=== PATIENT | male | born 1945 | race Caucasian/White ===

== ENCOUNTER 2024-03-18 11:58 | Outpatient (OUT) | payer MEDICARE, SELFPAY ==
[2024-03-18 12:56] LABS: Basophils Percent Auto 0.2 % (0.2-2.0); Eosinophils Absolute Auto 0.1 10^3/uL (0.0-0.7); Eosinophils Percent Auto 1.1 % (0.9-7.0); Hematocrit 39.5 % (42.0-54.0); Hemoglobin 13.3 g/dL (14.0-18.0); Immature Granulocytes Abs Auto 0.03 10^3/uL (0.00-0.03); Immature Granulocytes Pct Auto 0.5 % (0.0-0.5); Lymphocytes Absolute Auto 1.5 10^3/uL (1.2-3.8); Lymphocytes Percent Auto 23.3 % (20.5-60.0); Mean Corpuscular HGB Conc 33.7 g/dL (29.9-35.2); Mean Corpuscular Hemoglobin 30.6 pg (25.9-34.0); Mean Corpuscular Volume 90.8 fL (80.0-94.0); Mean Platelet Volume 9.5 fL (9.5-13.5); Monocytes Absolute Auto 0.6 10^3/uL (0.3-0.8); Neutrophils Absolute Auto 4.1 10^3/uL (1.4-6.5); Neutrophils Percent Auto 65.9 % (43.0-75.0); Platelet Count 151 10^3/uL (150-450); Red Blood Count 4.35 10^6/uL (4.70-6.10); Red Cell Distribution Width 12.9 % (11.0-15.0); White Blood Count 6.2 10^3/uL (4.0-11.0)
[2024-03-18 13:11] LABS: Estimated Average Glucose 126 mg/dL
[2024-03-18 13:25] LABS: Alanine Aminotransferase 21 U/L (16-63); Albumin Globulin Ratio 1.2; Albumin Level 3.8 g/dL (3.4-5.0); Alkaline Phosphatase 62 U/L (46-116); Aspartate Amino Transferase 17 U/L (15-37); BUN Creatinine Ratio 21.2; Bilirubin Total 1.2 mg/dL (0.2-1.0); Calcium 9.1 mg/dL (8.5-10.1); Carbon Dioxide 28.2 mmol/L (21.0-32.0); Chloride 101 mmol/L (98-107); Chol HDL Ratio 3.1; Cholesterol 142 mg/dL (<=200); Estimated GFR (African America >60 (>=60); Estimated GFR (Non-African Ame >60 (>=60); Globulin 3.3 g/dL; Glucose 107 mg/dL (74-106); HDL Cholesterol 46 mg/dL (40-60); Potassium 4.2 mmol/L (3.5-5.1); Sodium 137 mmol/L (136-145); Thyroid Stimulating Hormone 2.036 uIU/mL (0.358-3.740); Total Protein 7.1 g/dL (6.4-8.2); Triglycerides 203 mg/dL (<=150); VLDL CHOLESTEROL 40.6 mg/dL
[2024-03-18 14:20] LABS: Prostate Specific Antigen Scrn 3.07 ng/mL (<=4.00)
[2024-03-19 12:10] LABS: Insulin 27.6 uIU/mL (2.6-24.9)
[2024-03-19 15:39] LABS: Occult Blood Positive
== END 2024-03-18 11:59 | disposition home or self-care (01) ==
LOC: LAB 12:03
PROVIDERS: PCP Family Medicine; Visit Provider Family Medicine
DX: I48.0 Paroxysmal atrial fibrillation (principal); R01.1 Cardiac murmur, unspecified; G47.33 Obstructive sleep apnea (adult) (pediatric); R60.9 Edema, unspecified; E78.5 Hyperlipidemia, unspecified; R73.09 Other abnormal glucose; Z12.5 Encounter for screening for malignant neoplasm of prostate; Z12.12 Encounter for screening for malignant neoplasm of rectum; I50.30 Unspecified diastolic (congestive) heart failure; I11.0 Hypertensive heart disease with heart failure
CPT/HCPCS: 36415; 80053; 80061; 83036; 83525; 83880; 84436; 84443; 84481; 85025; G0103; G0328

== ENCOUNTER 2025-04-16 11:07 | Outpatient (OUT) | payer MEDICARE, SELFPAY ==
--- OUTSIDE RECORDS SUMMARY | 2024-11-20 04:23 | XMS_ITS ---
Author Organization The [facility] in [place] Address [address] [place] [address] Care Team Providers Care Email Administrator Name Role Phone Gloria Wisam Primary Care Provider REASON FOR VISIT rf Eliquis Medications Medication SIG (Take, Route, Frequency, Duration) Notes Start Date End Date Status Eliquis 5 MG take 1 tablet by kim th twice a day for 55 Active Encounters Encounter Location Date Provider Diagnosis [facility] [address] [place] [address] 11/20/2024 Wisam Castro Plan Of Treatment Medication Medication Name Sig Start Date Stop Date Notes Eliquis 5 MG take 1 tablet by mouth twice a day for 55 Progress Notes * Henry KAY CDOB: 4 (79 yo M)Acc No.[id number]:11/20/2024 Patient: Christal DIAYOBANIHenry :1945 A ge:79 Y S ex:Male Address:[address] [place] [phone] * Refills Refill Eliquis Tablet, 5 MG, 180 Tablet, take 1 tablet by mouth twice a day, 55, Refills=3 * true * Date: Generated for Printi ng/Faxing/eTransmitting on: 0 04/16/2025 11:10 AM EDT
--- OUTSIDE RECORDS SUMMARY | 2025-04-06 07:47 | XMS_ITS ---
Author Organization [facility] in [place] Address [address] [place] [address] Care Team Providers Care Amusement Centre Manager Name Role Phone DaveoscarWisam Primary Care Provider REASON FOR VISIT rf sotolol and losartan Medications Medication SIG (Take, Route, Frequency, Duration) Notes Start Date End Date Status Losartan Potassium 100 MG take 1 tablet by mouth once daily for 90 days Active Sotalol HCl 80 MG take 1 tablet by kim th twice a day for 90 Active Encounters Encounter Location Date Provider Diagnosis [facility] [address] [place] [address] 04/06/2025 Wisam Gloria Plan Of Treatment Medication Medication Name Sig Start Date Stop Date Notes Losartan Potassium 100 MG take 1 tablet by mouth once daily for 90 days Sotalol HCl 80 MG take 1 tablet by kim th twice a day for 90 Progress Notes * Henry KAY CDOB: (79 yo M)Acc No.[id number]:04/06/2025 Patient: Christal GARCIAHenry :1945 A ge:79 Y S ex:Male Address:[address] [place] [phone] * Refills Refill Losartan Potassium Tablet, 100 MG, 90 Tablet, take 1 tablet by mouth once daily, 90 days, Refills=3 Refill Sotalol HCl Tablet, 80 MG, 180 Tablet, take 1 tablet by mouth twice a day, 90, Refills=3 * true * Date: Generated for Jocelyne cervantes/Danielle/Julia on: 0 04/16/2025 11:10 AM EDT
--- OUTSIDE RECORDS SUMMARY | 2025-04-14 09:00 | XMS_ITS ---
Author Organization The [facility] in [place] Address [address] [place] [address] Care Team Providers Care Low Voltage Electrician Name Role Phone Wisam Castro Primary Care Provider Allergies No Known Allergies REASON FOR VISIT yearly Medications Medication SIG (Take, Route, Frequency, Duration) Notes Start Date End Date Status Sotalol HCl 80 MG take 1 tablet by kim th twice a day for 90 Active Triamcinolone Acetonide 0.1 % 1 application Externally Two times a Week Active Silvadene 1 % 1 application Aircraft Load Controller ally bid 05/28/2024 Active Vitamin D3 125 MCG (5000 UT) as directed Orally Once a day Active Metoprolol Succinate ER 100 MG take 1 tablet by mouth twice a day Oral for 90 days Active Cholecalciferol 125 MCG (5000 UT) as directed Orally Active CPAP - use as directed Acti ve Eliquis 5 MG take 1 tablet by kim th twice a day for 55 Active Losartan Potassium 100 MG take 1 tablet by mouth once daily for 90 days Active Atorvastatin Calcium 10 MG 1 tablet Oral ly Once a day for 90 days Active amLODIPine Besylate 10 MG 1 tablet Orall y Once a day for 90 days Active Social History Tobacco Use: Social History Observation Description Date Details (start date - stop date) Never Smoker NA - NA Tobacco Use/Smoking Question Answer Notes Patient is a nonsmoker AUDIT-C (Standard) Question Answer Notes Did you have a drink contain ing alcohol in the past year? Yes How often did you have a dri nk containing alcohol in the past year? Never (0 point) How many drinks did you have on a typical day when you were drinking in the past year? 1 or 2 drinks (0 point) How often did you have six o r more drinks on one occasion in the past year? 2 to 4 times a month (2 points) Points 2 Interpretation Negative Problems Problem Type SNOMED Code ICD Code Onset Dates Problem Status W/U Status Risk Notes Problem Morbid (severe) obesity due to excess calories (E66.01) Active confirmed Vital Signs Weight 286 lbs 04/14/2025 Height 73 in 04/14/2025 Blood pressure systolic 142 mm Hg 04/14/20 25 Blood pressure diastolic 82 mm Hg 025 BMI 37.73 kg/m2 04/14/2025 Encounters Encounter Location Date Provider Diagnosis [facility] [address] [place] [address] 04/14/2025 Wisam Hoy Morbid (severe) obes ity due to excess calories E66.01 ; Paroxysmal atrial fibrillation I48.0 ; Diabetes mellitus E11.9 and Paroxysmal ventricular tachycardia I47.29 Assessments Encounter Date Diagnosis (ICD Code) Assessment Notes Treatment Notes Treatment Clinical Notes Section Notes 04/14/2025 Morbid (severe) obesity due to excess calories (ICD-10 - E66.01) 04/14/2025 Paroxysmal atrial fibrillation (ICD-10 - I48.0) toleraed sotalol 04/14/2025 Diabetes mellitus (ICD-10 - E11.9) dfsicu ssed diet 04/14/2025 Paroxysmal ventricular tachycardia (ICD-10 - I47.29) Plan Of Treatment Treatment Notes Assessment Notes Paroxysmal atrial fibrillation toleraed sotalol Diabetes mellitus dfsicu ssed diet Pending Test Test Name Order Date HEMOGLOBIN A1C (GLYCO) 04/14/2025 LIPID PANEL (CHOL/TRIG/HDL/LDL) 04/14/20 25 STOOL OCCULT BLOOD 04/14/2025 THYROID PANEL (T4/TSH/FREE T3) PSA, SCREENING 04/14/2025 CMP (COMP MET ORELLANA) w/eGFR CKD-EPI 2024 CBC WITH DIFF 04/14/2025 Progress Notes * Henry DURAN CDOB: 4 (79 yo M)Acc No.[id number]:04/14/2025 Progress Note Patient: Christal GARCIA Henry Thacker Provider: Chase Castro ([facility])MD :1945 A ge:79 Y S ex:Male Date:04/14/2025 Address:[address] [place], [phone] Check In:12:56 PM ESTCheck O ut:01:30 PM EST Subjective: * Chief Complaints: * Y early * HPI: G eneral: Yearly Check up feels like is slowing down a bit for age wel controll Hx a-fib stble off meds needs lid lab surgery - ok to hld eliquis 3 days CHol - on meds. * ROS: E ENT: hearing changes d enies. v isual changes d enies.?non-healing mouth sores d enies. s wollen glands or neck lumps d enies. h oarseness d enies. s ore throat d enies. d ifficulty swallowing d enies. n ose bleeds d enies. n brad congestion d enies. e ar ache d enies. e ar discharge?denies. r inging in ears d enies. l ight sensitivity d enies. e ye pain d enies. b lurring d enies. e ye irritation d enies. d ouble vision d enies.?vision loss d enies. G eneral/Constitutional: Sweats: D enies. F atigue d enies. S leep problems d enies. A norexia d enies. M alaise d enies. W eight loss d enies.?Fatigue or Weakness d enies. F ever or Chills d enies. C ardiovascular: Shortness of Breath w/lying flat d enies. L ightheadedness/dizziness d enies. C hest tightness/ heavy pressure d enies. S welling of legs, ankles, or feet d enies. W aking up with shortness of breath d enies. C hest pain denies. P alpitations d enies. W eight gain d enies. R espiratory: Chronic or frequent cough d enies. C oughing up blood?denies. D ifficulty breathing d enies. P roductive cough d enies. S noring?denies. S hortness of breath that awakens from sleep (PND) d enies. C hest pain d enies. S putum production d enies. W heezing d enies. M usculoskeletal: Joint pain d enies. J oint Fluid d enies. B ack pain d enies. K nee pain d enies. N hipolito pain d enies. J oint Stiffness d enies. M uscle cramps d enies. W eakness of muscles d enies. A rthritis d enies. M uscle aches d enies. P ain in shoulder(s) d enies. S wollen joints d enies. * Active Problem List I34.0 Mild mitral regurgit ation Modified On:03/26/2023 Status:confirmed L30.9 Eczema Modified On:03/26/2023 Status:confirmed E55.9 Vitamin D deficiency Modified On:03/26/2023 Status:confirmed I07.1 Mild tricuspid regur gitation Modified On:03/26/2023 Status:confirmed K64.9 Hemorrhoids Modified On:03/26/2023 Status:confirmed H54.7 Vision loss Modified On:03/26/2023 Status:confirmed R01.1 Murmur, heart Modified On:03/26/2023 Status:confirmed R20.2 Paresthesia of lower extremity Modified On:03/26/2023 Status:confirmed D17.30 Lipoma of skin Modified On:03/26/2023 Status:confirmed 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 Modified On:03/26/2023 Status:confirmed M77.8 Tendinitis of right wrist Modified On:03/26/2023 Status:confirmed E11.9 Diabetes mellitus Modified On:03/26/2023 Status:confirmed I47.29 Paroxysmal ventricul ar tachycardia Modified On:03/26/2023 Status:confirmed E66.3 Overweight Modified On:03/26/2023 Status:confirmed I48.0 Paroxysmal atrial fi brillation Modified On:03/26/2023 Status:confirmed K43.9 Ventral hernia witho ut obstruction or gangrene Modified On:03/26/2023 Status:confirmed R00.2 Palpitations Modified On:03/26/2023 Status:confirmed I10 Hypertension Modified On:03/26/2023 Status:confirmed M19.90 Osteoarthritis Modified On:03/26/2023 Status:confirmed I51.7 Left ventricular hyp ertrophy Modified On:03/26/2023 Status:confirmed G47.33 Obstructive sleep ap benjy (adult) (pediatric) Modified On:01/26/2023 Status:confirmed R42 Vertigo Modified On:03/26/2023 Status:confirmed R60.9 Edema Modified On:03/18/2024 Status:confirmed 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 M other: . * Social History: T obacco Use: T obacco Use/Smoking P atient is a n onsmoker D rug/Alcohol: A FEDE-C (Standard) D id you have a drink containing alcohol in the past year? Y es H ow often did you have a drink containing alcohol in the past year? N ever (0 point) H ow many drinks did you have on a typical day when you were drinking in the past year? 1 or 2 drinks (0 point) H ow often did you have six or more drinks on one occasion in the past year? 2 to 4 times a month (2 points) P oints 2 I nterpretation N egative * Medications: T akingamLODIPine Besylate 10 MG Tablet 1 tablet Orally Once a day Atorvastatin Calcium 10 MG Tablet 1 tablet Orally Once a day Cholecalciferol 125 MCG (5000 UT) Tablet as directed Orally CPAP - use as directed Eliquis(Apixaban) 5 MG Tablet take 1 tablet by mouth twice a day Losartan Potassium 100 MG Tablet take 1 tablet by mouth once daily Metoprolol Succinate ER 100 MG Tablet Extended Release 24 Hour take 1 tablet by mouth twice a day Oral Silvadene(Silver sulfADIAZINE) 1 % Cream 1 application Externally bid Sotalol HCl 80 MG Tablet take 1 tablet by mouth twice a day Triamcinolone Acetonide 0.1 % Cream 1 application Externally Two times a Week Vitamin D3 125 MCG (5000 UT) Capsule as directed Orally Once a day Taking amLODIPine Besylate 10 MG Tablet 1 tablet Orally Once a day Taking Atorvastatin Calcium 10 MG Tablet 1 tablet Orally Once a day Taking Cholecalciferol 125 MCG (5000 UT) Tablet as directed Orally Taking CPAP - use as directed Taking Eliquis(Apixaban) 5 MG Tablet take 1 tablet by mouth twice a day Taking Losartan Potassium 100 MG Tablet take 1 tablet by mouth once daily Taking Metoprolol Succinate ER 100 MG Tablet Extended Release 24 Hour take 1 tablet by mouth twice a day Oral Taking Silvadene(Silver sulfADIAZINE) 1 % Cream 1 application Externally bid Taking Sotalol HCl 80 MG Tablet take 1 tablet by mouth twice a day Taking Triamcinolone Acetonide 0.1 % Cream 1 application Externally Two times a Week Taking Vitamin D3 125 MCG (5000 UT) Capsule as directed Orally Once a day DiscontinuedAmoxicillin 500 MG Capsule 4 capsule Orally 1 hour prior to dental procedure Medication List reviewed and reconciled with the patientDiscontinued Amoxicillin 500 MG Capsule 4 capsule Orally 1 hour prior to dental procedure Medication List reviewed and reconciled with the patient * Allergies: N .K.D.A.no[Allergies Verified] Objective: * Vitals: W t:286lbs, Ht: 73 in, BP:142/82mm Hg, BMI:37.73Index, Ht-cm: 185.42 cm, Wt-k.73 kg. * Examination: P hysical Exam: GENERAL: w ell developed, well nourished, in no acute distress. HEAD: n ormocephalic/atraumatic. EYES: p upils equal, round and reactive to light, conjunctivae and sclerae normal. EARS: n o deformity or lesion of external ear, canals and TM appear normal bilaterally, TM's intact, not inflamed with normal light reflex, hearing grossly normal to conversational speech. NOSE: n o deformity, discharge, inflammation, or lesions.? MOUTH: m ucous membranes moist, normal oropharynx and posterior pharynx without lesions or exudates, tongue normal, dentition normal. NECK: n hipolito supple, no masses or palpable cervical nodes, trachea midline, thyroid without nodules, masses, tenderness, or enlargement. CHEST: n o chest wall deformity, no chest wall tenderness.? LUNGS: n ormal respiratory effort and clear to auscultation, no wheezes, rales, or rhonchi, good air exchange. CARDIO: r egular rate and rhythm, normal S1 and S2, nor murmur, rub, or gallop. PULSES: n ormal capillary refill. ABDOMEN: s oft, non-distended, non-tender, no masses. MUSCULOSKELETAL: n o deformity or scoliosis noted, normal range of motion, joints normal, no erythema, edema, effusion, or ecchymosis. EXTREMITY: n o clubbing, cyanosis, edema, or deformity with normal ROM in both upper and lower bilateral extremities. NEUROLOGIC: g rossly normal. SKIN: n o rashes, ulcerations, or suspicious lesions. LYMPH NODES: n o cervical adenopathy, nodes normal. MENTAL STATUS: a lert and oriented x3, normal mood and affect. Assessment: * Assessment: 1. M orbid (severe) obesity due to excess calories - E66.01 (Primary) 2 . P aroxysmal atrial fibrillation - I48.0 3 . D iabetes mellitus - E11.9 4 . P aroxysmal ventricular tachycardia - I47.29 Plan: * Treatment: 2. P aroxysmal atrial fibrillation L AB: HEMOGLOBIN A1C (GLYCO) L AB: LIPID PANEL (CHOL/TRIG/HDL/LDL) L AB: STOOL OCCULT BLOOD L AB: THYROID PANEL (T4/TSH/FREE T3) L AB: PSA, SCREENING L AB: CMP (COMP MET ORELLANA) w/eGFR CKD-EPI L AB: CBC WITH DIFF Notes: toleraed sotalol 3. D iabetes mellitus L AB: HEMOGLOBIN A1C (GLYCO) L AB: LIPID PANEL (CHOL/TRIG/HDL/LDL) L AB: STOOL OCCULT BLOOD L AB: THYROID PANEL (T4/TSH/FREE T3) L AB: PSA, SCREENING L AB: CMP (COMP MET ORELLANA) w/eGFR CKD-EPI L AB: CBC WITH DIFF Notes: dfsicu ssed diet 4. P aroxysmal ventricular tachycardia L AB: HEMOGLOBIN A1C (GLYCO) L AB: LIPID PANEL (CHOL/TRIG/HDL/LDL) L AB: STOOL OCCULT BLOOD L AB: THYROID PANEL (T4/TSH/FREE T3) L AB: PSA, SCREENING L AB: CMP (COMP MET ORELLANA) w/eGFR CKD-EPI L AB: CBC WITH DIFF * Procedure Codes: * Preventive Medicine: Screenings/Counseling: B NE ACTION PLAN Above Normal BMI Follow-up D ietary management education, guidance, and counseling * * Sign off status: Completed Visit Status: C HK (Check Out) true * Provider: Chase Castro ([facility])MD Date: 0 04/14/2025 Generated for Printi ng/Faxing/eTransmitting on: 0 04/16/2025 11:11 AM EDT History and Physical Notes * HPI (History of Present Illness) Category Sub-Category Detail Notes Category Not es General Yearly Check up feels like is slowing down a bit for age wel controll Hx a-fib stble off meds needs lid lab surgery - ok to hld eliquis 3 days CHol - on meds Examination Category Sub-Category Detail Notes Category Not es Physical Exam GENERAL: well developed, well nourished, in no acute distress HEAD: normocephalic/atraum atic EYES: pupils equal, round and reactive to light, conjunctivae and sclerae normal EARS: no deformity or lesi on of external ear, canals and TM appear normal bilaterally, TM's intact, not inflamed with normal light reflex, hearing grossly normal to conversational speech NOSE: no deformity, discha rge, inflammation, or lesions MOUTH: mucous membranes maría st, normal oropharynx and posterior pharynx without lesions or exudates, tongue normal, dentition normal NECK: neck supple, no mass es or palpable cervical nodes, trachea midline, thyroid without nodules, masses, tenderness, or enlargement CHEST: no chest wall deform ity, no chest wall tenderness LUNGS: normal respiratory e ffort and clear to auscultation, no wheezes, rales, or rhonchi, good air exchange CARDIO: regular rate and rhy thm, normal S1 and S2, nor murmur, rub, or gallop PULSES: normal capillary ref ill ABDOMEN: soft, non-distended, non-tender, no masses RECTAL: MUSCULOSKELETAL: no deformity or scol iosis noted, normal range of motion, joints normal, no erythema, edema, effusion, or ecchymosis EXTREMITY: no clubbing, cyanosi s, edema, or deformity with normal ROM in both upper and lower bilateral extremities NEUROLOGIC: grossly normal SKIN: no rashes, ulceratio ns, or suspicious lesions LYMPH NODES: no cervical adenopat hy, nodes normal MENTAL STATUS: alert and oriented x 3, normal mood and affect
--- OUTSIDE RECORDS SUMMARY | 2025-04-16 11:11 | XMS_ITS | Encounter Summary ---
Author Organization [facility] Address [address] [place] [address] Care Team Providers Care Communications Writer Name Role Phone Berlin Castro MD Primary Care Provider + Rey Perry MD Unavailable Dameon Arizmendi MD Unavailable [phone] Toy Crouch MD Unavailable [phone] Source Comments In the event this information is protected by the Federal Confidentiality of Alcohol and Drug AbusePatient Records regulations: The Federal rules restrict any use of the information to criminally investigate or prosecute any alcohol or drug abuse patient.[facility] Encounter Details Date Type Department Care Team (Late st Contact Info) Description 03/31/2021 Get Medical Advice Cardiology [address] [place] [address] [place] [address] RE: Non-Urgent Medical Question Social History Tobacco Use Types Packs/Day Years Used Date Smoking Tobacco: Never Smokeless Tobacco: Never Alcohol Use Standard Drinks/Week Comments Yes 0 (1 standard drink = 0.6 oz pur e alcohol) 10 drinks per week PHQ-2 Answer Date Recorded PHQ2 Score 0 04/15/2019 Area Deprivation Index Answer Date Dat rded National Score (1-100), lower number is lower ri sk Not on file 10/19/2020 State Score (1-10), lower number is lower risk N ot on file 10/19/2020 Data from: https://www.neighborhoodatlas.medicine.[facility]/. Last address used for calculation Not on file 10/19/2020 Sex and Gender Information Value Date Recorded Sex Assigned at Male 04/18/2022 9:48 PM EDT Legal Sex Male 1:40 PM EST Gender Identity Male 04/18/2022 9:48 PM EDT Sexual Orientation Straight 04/18/2022 9: 48 PM EDT COVID-19 Exposure Response Date Recorded In the last month, have you been in contact with someone who was confirmed or suspected to have Coronavirus / COVID-19? No / Unsure 03/08/2021 8:36 AM EDT documented as of this encounter Functional Status * Are you deaf or do you have serious difficulty hearing? Answer Date of Assessment Author No 04/18/2019 3:08 PM EDT Cherise Avendano RN * Are you blind or do you have serious difficulty seeing, even when wearing glasses? Answer Date of Assessment Author No 04/18/2019 3:08 PM EDT Cherise Avendano RN * Do you have serious difficulty walking or climbing stairs? Answer Date of Assessment Author No 04/18/2019 3:08 PM EDT Cherise Avendano RN * Do you have difficulty dressing or bathing? Answer Date of Assessment Author No 04/18/2019 3:08 PM EDT Cherise Avendano RN * Because of a physical, mental, or emotional condition, do you have difficulty doing errands alone such as visiting a doctor's office or shopping? Answer Date of Assessment Author No 04/18/2019 3:08 PM EDT Cherise Avendano RN documented as of this encounter Mental Status * Because of a physical, mental, or emotional condition, do you have serious difficulty concentrating, remembering, or making decisions? Answer Entry Date Author No 04/18/2019 3:08 PM EDT Cherise Avendano RN documented in this encounter Plan of Treatment Upcoming Encounters Date Type Department Care Team (Late st Contact Info) Description 04/26/2025 12:30 PM EDT Office Visit Cardiology [address] [place] [phone] [place] [address] [place], [place] [id number] annual 04/26/2025 12:30 PM EDT Office Visit Cardiology [address] [place] [address] annual documented as of this encounter Visit Diagnoses Not on filedocumented in this encounter Care Teams Communications Writer Relationship Specialty Start Date End Date Berlin Castro MD PCP - General Family Medicine 11/24/15 Rey Perry MD [address] [place] [address] Referring Cardiology 03/10/19 Dameon Arizmendi MD [address] [place] [phone] Cardiology 03/24/19 Toy Crouch MD [address] [place] [phone] Primary Staff Physician Cardiology 04/26/20 documented as of this encounter
--- OUTSIDE RECORDS SUMMARY | 2025-04-16 11:11 | XMS_ITS | Patient Health Record ---
Author Organization [facility] in [place] Address [address] [place] [address] Care Team Providers Care Sugar Drier Name Role Phone Wisam Castro Primary Care Provider [phone] Allergies No Known Allergies Reason For Referral No Information Medications Medication SIG (Take, Route, Frequency, Duration) Notes Start Date End Date Status Sotalol HCl 80 MG take 1 tablet by kim th twice a day for 90 Active Triamcinolone Acetonide 0.1 % 1 application Externally Two times a Week Active Metoprolol Succinate ER 100 MG take 1 tablet by mouth twice a day Oral for 90 days Active Silvadene 1 % 1 application Grocery Store Manager ally bid 05/28/2024 Active Atorvastatin Calcium 10 MG 1 tablet Oral ly Once a day for 90 days Active Cholecalciferol 125 MCG (5000 UT) as directed Orally Active Vitamin D3 125 MCG (5000 UT) as directed Orally Once a day Active amLODIPine Besylate 10 MG 1 tablet Orall y Once a day for 90 days Active CPAP - use as directed Acti ve Eliquis 5 MG take 1 tablet by kim th twice a day for 55 Active Losartan Potassium 100 MG take 1 tablet by mouth once daily for 90 days Active Social History Tobacco Use: Social History Observation Description Date Details (start date - stop date) Never Smoker NA - NA Tobacco Use/Smoking Question Answer Notes Patient is a nonsmoker Alcohol Screen (Audit-C) Question Answer Notes Did you have a drink contain ing alcohol in the past year? Yes How often did you have 6 or more drinks on one occasion in the past year? Never (0 point) How many drinks did you have on a typical day when you were drinking in the past year? 1 or 2 drinks (0 point) How often did you have a dri nk containing alcohol in the past year? Monthly (2 points) Points 2 Interpretation Negative AUDIT-C (Standard) Question Answer Notes Did you [...] Problem Status W/U Status Risk Notes Problem Obstructive sleep apnea syndrome (disorder) (93235213) Obstructive sleep apnea (adult) (pediatric) (G47.33) Active confirmed Problem Morbid obesity (disorder) (603697955) Morbid (severe) obesity due to excess calories (E66.01) Active confirmed Problem Overweight (914005779) Overweight (E66.3) Active confirmed Problem Paroxysmal atrial fibrillation (172370783) Paroxysmal atrial fibrillation (I48.0) Active confirmed Problem Hernia of anterior abdominal wall (disorder) (452419865) Ventral hernia without obstruction or gangrene (K43.9) Active confirmed Problem Palpitations (99177789) Palpitations (R00.2) Active confirmed Problem Hypertension (17507513) Hypertension (I10) Active confirmed Problem Osteoarthritis (995454514) Osteoarthritis (M19.90) Active confirmed Problem Edema (24248973) Edema (R60.9) Active confirmed Problem Left ventricular hypertrophy (49114160) Left ventricular hypertrophy (I51.7) Active confirmed Problem Vertigo (867179015) Vertigo (R42) Active confirmed Problem Mitral valve disorder (33757567) Mild mitral regurgitation (I34.0) Active confirmed Problem Eczema (05613317) Eczema (L30.9) Active confirm ed Problem Vitamin D deficiency (98894361) Vitamin D deficiency (E55.9) Active confirmed Problem Tricuspid valve disorder (29654510) Mild tricuspid regurgitation (I07.1) Active confirmed Problem Hemorrhoids (06646098) Hemorrhoids (K64.9) Active confirmed Problem 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) Active confirmed Problem Heart murmur (finding) (42348384) Murmur, heart (R01.1) Active confirmed Problem Paresthesia of lower extremity (162898104) Paresthesia of lower extremity (R20.2) Active confirmed Problem Lipoma of skin (251868180) Lipoma of skin (D17.30) Active confirmed Problem Permanent cardiac pacemaker (066611392339794) Presence of permanent cardiac pacemaker (Z95.0) Active confirmed Problem Tendinitis of right wrist (3118126678153246 9) Tendinitis of right wrist (M77.8) Active confirmed Problem Degeneration of macula due to cyst, 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) Pseudohole of macula, 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) Active confirmed Problem Diabetes mellitus (78371278) Diabetes mellitus (E11.9) Active confirmed Problem Paroxysmal ventricular tachycardia (72267365) Paroxysmal ventricular tachycardia (I47.29) Active confirmed Vital Signs Blood pressure diastolic 82 mm Hg 04/14/2025 Height 73 in 04/14/2025 Blood pressure systolic 142 mm Hg 04/14/2025 Weight 286 lbs 04/14/2025 BMI 37.73 kg/m2 04/14/2025 Encounters Encounter Location Date Provider Diagnosis [facility] [address] [place] [address] 05/28/2024 Wisam [facility] [address] [place] [address] 06/01/2024 Wisam Castro [facility] [address] [place] [address] 09/10/2024 Wisam [facility] [address] [place] [address] 10/05/2024 Wisam Castro [facility] [address] [place] [address] 11/20/2024 Wisam oscar [facility] [address] [place] [address] 04/06/2025 Wisam oscar [facility] [address] [place] [address] 04/14/2025 Wisam Castro Morbid (severe) obes ity due to excess [...] tachycardia (ICD-10 - I47.29) Plan Of Treatment Pending Test Test Name Order Date CMP (COMPLETE METABOLIC PANEL) 4 HEMOGLOBIN A1C (GLYCO) 03/18/2024 HEMOGLOBIN A1C (GLYCO) 04/14/2025 INSULIN, TOTAL 03/18/2024 LIPID PANEL (CHOL/TRIG/HDL/LDL) 04/14/20 25 LIPID PANEL (CHOL/TRIG/HDL/LDL) 03/18/20 24 CBC WITH DIFF 03/18/2024 PSA, PROSTATE-SPECIFIC ANTIGEN 4 STOOL OCCULT BLOOD 03/18/2024 STOOL OCCULT BLOOD 04/14/2025 THYROID PANEL (T4/TSH/FREE T3) 5 THYROID PANEL (T4/TSH/FREE T3) 4 PSA, SCREENING 04/14/2025 CMP (COMP MET ORELLANA) w/eGFR CKD-EPI 2024 CBC WITH DIFF 04/14/2025 Insurance Providers Payer Name Payer Address Payer Phone Subscriber Number Group Number Insured Name Patient Relationship to Insured Coverage Start Date Coverage End Date [employer] ADV PLAN [address] [place] [phone] [id number] [id number] Henry Duran Self - patient is the insured 9 Medical (General) History Medical History History ICD Code Chronic eczema L30.9 Nonsustained paroxysmal ventricular tach ycardia I47.29 Cardiac pacemaker Z95.0 Low vitamin D level E55.9 Obstructive sleep apnea G47.33 Paroxysmal atrial fibrillation I48.0 Controlled type 2 diabetes mellitus E11. 9 Hernia, ventral K43.9 Benign essential hypertension I10 Cardiac murmur R01.1 Acquired ventricular hypertrophy I51.7 Acute mitral regurgitation I34.0 Mild tricuspid regurgitation I07.1 Surgical History Surgery Date(Month/Year) Back Surgery Pacemaker Gallbladder
--- OUTSIDE RECORDS SUMMARY | 2025-04-16 11:11 | XMS_ITS | Clinical Summary ---
Author Organization [facility] Address [address] [place] [address] Care Team Providers Care Stock Letterer Name Role Phone Berlin Castro MD Primary Care Provider [phone] Henry Torrez MD Unavailable [phone] Rey Perry MD Unavailable Allergies No known active allergies Medications aspirin 81 MG Chew Tab take 81 mg by mouth at bedtime. Active atorvastatin 10 MG Tab take 10 mg by mouth daily. Active apixaban 5 MG Tab take by mouth every 12 hours. Active omega-3 acid ethyl esters 1 G Cap take 1 g by mouth daily. Active losartan 100 MG Tab take 100 mg by mouth daily. Active sotalol 80 MG Tab take 1 tablet by mouth every 12 hours. 60 tablet 5 03/23/2016 Active Active Problems Problem Noted Date Diagnosed Date PAF (paroxysmal atrial fibrillation) 12/05/2018 Overview (12/05/2018): Added automatically from request for surgery [id number] Atrial fibrillation, persistent 03/22/2016 Assessment & Plan (03/22/2016 2:26 PM EDT): S/p successful DCCV 03/21/16 Admitted for sotalol load He is now SB 40's despite stopping Coreg He is asymptomatic with notable chronotropic HR response with ambulation Decrease Sotalol to 80 mg BID and monitor S/p LINQ implant today for continued surveilance Continue eliquis Encounter for monitoring sotalol therapy 05/12/2 016 Assessment & Plan (03/22/2016 2:19 PM EDT): He has 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 Torrez and [facility] LV dysfunction 03/22/2016 Assessment & Plan (03/22/2016 2:38 PM EDT): EF 45% Like Tachy/Afib related Clinically compensated Follow up TTE in 3 months after maintenance of SR Follow up with Dr. Perry Hypomagnesemia 03/22/2016 Assessment & Plan (03/22/2016 2:33 PM EDT): Mg+ 1.7 Replacement per protocol Bradycardia 03/22/2016 Assessment & Plan (03/22/2016 2:34 PM EDT): Asymptomatic Decrease sotalol Check TSH CAD (coronary artery disease) 03/21/2016 Assessment & Plan (03/22/2016 2:30 PM EDT): Non-obstructive Continue ASA, statin therapy HTN (hypertension) 03/21/2016 Assessment & Plan (03/22/2016 2:26 PM EDT): Controlled Continue Losartan with Sotalol LÓPEZ (obstructive sleep apnea) 03/21/2016 Assessment & Plan (03/22/2016 2:25 PM EDT): Continue home c-pap Family History Medical History Relation Name Comments Other - Specify Father muscular dys trophy Other - Specify Mother Alzheimer's Relation Name Status Comments Father Mother (Age 93) Social History Tobacco Use Types Packs/Day Years Used Date Smoking Tobacco: Never Smokeless Tobacco: Never Alcohol Use Standard Drinks/Week Comments Yes 0 (1 standard drink = 0.6 oz pur e alcohol) occassional Sex and Gender Information Value Date Recorded Sex Assigned at Not on file Legal Sex Male 8:30 AM EDT Gender Identity Male Sexual Orientation Not on file Last Filed Vital Signs Vital Sign Reading Time Taken Comments Blood Pressure 148/78 12/09/2018 3:15 PM EST Pulse 47 12/09/2018 3:15 PM EST Temperature 36.9 C (98.5 F) 03/23/2016 11:25 AM EDT Respiratory Rate 20 12/09/2018 3:15 PM EST Oxygen Saturation 81% 12/09/2018 3:15 PM EST Inhaled Oxygen Concentration - - Weight 127 kg (280 lb) 12/09/2018 12:03 PM EST Height 185.4 cm (6' 1 ) 12/09/2018 12:03 PM EST Body Mass Index 36.94 12/09/2018 12:03 PM EST Plan of Treatment Health Maintenance Due Date Last Done Comments TETANUS 1944 TDAP (ADULT) 1963 COLORECTAL CANCER SCREENING DISCUSSION 1989 ZOSTER (SHINGLES) VACCINE (1 of 2) 1994 PNEUMOCOCCAL VACCINE SERIES (2 of 2 - PCV) 09/19/2017 09/19/2016 RSV VACCINE (1 - 1-dose 75+ series) 2019 COVID-19 VACCINE (1 - 2023-2 5 season) 2024 INFLUENZA VACCINE (Season Ended) 2025 09/19/20 16 HEP B VACCINE Aged Out No longer elig ible based on patient's age to complete this topic Medical Devices Implanted Type Area Advanced Manager Device Identifier Shelf Expiration Date Model / Serial / Lot Icm Reveal Linq - [id number] Implanted:Qty : 1 on 03/22/2016 by Lucien Ward MD at [facility] Loop Recorder N/A: Chest Wall [employer] 12/25/2016 [id number] / [id number] / Advance Directives For more information, please contact: [phone] (7:30 AM - 6PM [facility], Saturday-Saturday) * Full Code (Latest Code Status on File) Date Activated Date Inactivated Comments 12/09/2018 2:21 PM * Full Code Date Activated Date Inactivated Comments 03/22/2016 7:30 AM 03/23/2016 2:45 PM * Full Code Date Activated Date Inactivated Comments 03/21/2016 3:01 PM 03/22/2016 7:30 AM Care Teams Stock Letterer Relationship Specialty Start Date End Date Berlin Castro MD PCP - General Family Medicine 03/15/16 Henry Torrez MD [address] [place] [address] PCP - Referring 1 Clinical Cardiac Electrophysiology 12/08/18 Rey Perry MD [address] [place] [address] Cardiovascular Disease 02/03/19
--- OUTSIDE RECORDS SUMMARY | 2025-04-16 11:11 | XMS_ITS | Clinical Summary ---
Author Organization [facility] Address [id number] [address] [place] [address] Care Team Providers Care Broadcasting Equipment Mechanic Name Role Phone Unavailable Primary Care Provider Unavailabl e Social History Tobacco Use Types Packs/Day Years Used Date Smoking Tobacco: Never Assessed Childcare Answer Date Recorded Childcare Unknown 04/16/2019 Employment Answer Date Recorded Employment Unknown 04/16/2019 Sex and Gender Information Value Date Recorded Sex Assigned at Not on file Legal Sex Male 11:34 AM EDT Gender Identity Not on file Sexual Orientation Not on file Plan of Treatment Upcoming Encounters Date Type Department Care Team (Late st Contact Info) Description 05/04/2025 12:45 PM EDT Procedure visit [facility] - Pre Admit [address] [place] [address] 05/20/2025 2:15 PM EDT Hospital Encounter [facility] - Surgery [address] [place] [address] Sandra Manuel MD [address] [place] [address] [phone] 05/20/2025 2:15 PM EDT - 05/20/2025 3:15 PM EDT Surgery [facility] - Surgery [address] [place] [address] Sandra Manuel MD [address] [place] [address] [phone] BLEPHAROPLASTY Scheduled Procedures Name Priority Associated Diagnoses Date/Ti me BLEPHAROPLASTY bilateral ptosis 05/20/2025 2:15 PM EDT Health Maintenance Due Date Last Done Comments Depression Screening 1957 Tobacco Screening 1957 DTaP,Tdap and Td Vaccines (1 - Tdap) 1963 Zoster (Shingles) Vaccine (1 of 2) 1994 Fall Risk Screening 2009 Influenza Vaccine 07/12/2025 Goals Goal Patient Goal Type Associated Problems Recent Progress Patient-Stated? Author Autogenerat ed Goal Care Plan Autogenerated Problem No Background, [employer] Not on file Additional Health Concerns Active Problems Noted Date Diagnosed Date Autogenerated Problem 04/05/2025 Insurance [employer]ARE
--- OUTSIDE RECORDS SUMMARY | 2025-04-16 11:13 | XMS_ITS | Clinical Summary ---
Author Organization [facility] Address [address] [place] [id number] Care Team Providers Care Dictating Machine Typist Name Role Phone Berlin Castro MD Primary Care Provider +- Rey Perry MD Unavailable Dameon Arizmendi MD Unavailable [phone] Toy Crouch MD Unavailable [phone] Allergies No known active allergies Medications apixaban (ELIQUIS) 5 mg tab(s) Take 5 mg by mouth twice daily. Active atorvastatin (LIPITOR) 10 mg tablet Take 10 mg by mouth once daily. Active losartan (COZAAR) 100 mg tablet Take 100 mg by mouth once daily. Active docosahexanoic acid/epa (FISH OIL ORAL) Take by mouth once daily. Active cholecalciferol (VITAMIN D-3) 5,000 unit tab Take 5,000 Units by mouth once daily. Active iv contrast (will be provided with radiology test)Indications :Paroxysmal atrial fibrillation (HCC) CT Pulm Vein - No IV access, insert saline lock prior to the sedation, infusion, injection for imaging exam. Discontinue saline lock post exam. If Pt. has a central line or IVAD, may access for administration according to line specific nursing protocol. Once exam is complete flush line and de-access according to line specific nursing protocol in the CT contrast administration guidelines link. 1 Each 03/26/20 19 Active amLODIPine (NORVASC) 5 mg tablet Take 1 tablet by mouth once daily. 90 tablet 3 08/02/20 21 Active metoprolol succinate ER (TOPROL XL) 100 mg Take 1 tablet by mouth two times a day. 180 tablet 3 09/20/20 23 Active sotalol (BETAPACE) 80 mg tablet Take 1 tablet by mouth every 12 hours. ok to take with Metoprolol 180 tablet 3 04/24/20 24 Active Active Problems Problem Noted Date Diagnosed Date Thrombocytopenia 04/18/2019 Ventricular tachyarrhythmia 04/16/2019 Obesity, Class I, BMI 30-34.9 04/16/2019 Type 2 Diabetes mellitus 04/14/2019 Obesity (BMI 35.0-39.9 without comorbidity) 02/11 Mixed hyperlipidemia 01/15/2019 PAF (paroxysmal atrial fibrillation) 12/05/2018 Atherosclerosis of coronary artery 03/21/2016 Overview (04/14/2019): Last Assessment & Plan: Non-obstructive Continue ASA, statin therapy LÓPEZ (obstructive sleep apnea) 03/21/2016 Resolved Problems Problem Noted Date Diagnosed Date Resolved Date Syncopal episodes 04/15/2019 04/18/2019 Encounters Date Type Department Care Team Description 01/19/2025 Orders Only Cardiology [id number] [place] [address] Toy Crouch MD from Last 3 Months Immunizations Immunization Administration Dates Next Due influenza vaccine, unspecified formulation 09/19 pneumococcal polysaccharide (PPV23) vaccine, 23 valent (PNEUMOVAX 23) 09/19/2016 Family History Medical History Relation Comments Muscular dystrophy Father No Known Problems Mother Alzheimer's Disease Sister Stroke Sister Relation Status Comments Father Mother Sister Social History Tobacco Use Types Packs/Day Years Used Date Smoking Tobacco: Never Smokeless Tobacco: Never Tobacco Cessation:Counseling Given: Not Answered Alcohol Use Standard Drinks/Week Comments Yes 0 (1 standard drink = 0.6 oz pur e alcohol) 10 drinks per week PHQ-2 Answer Date Recorded PHQ2 Score 0 04/15/2019 Area Deprivation Index Answer Date Dat rded National Score (1-100), lower number is lower ri sk 59 04/22/2023 State Score (1-10), lower number is lower risk 4 04/22/2023 Data from: https://www.neighborhoodatlas.medicine.[facility].edu/. Last address used for calculation [address] 04/22/2023 Sex and Gender Information Value Date Recorded Sex Assigned at Male 04/18/2022 9:48 PM EDT Legal Sex Male 1:40 PM EST Gender Identity Male 04/18/2022 9:48 PM EDT Sexual Orientation Straight 04/18/2022 9: 48 PM EDT Last Filed Vital Signs Vital Sign Reading Time Taken Comments Blood Pressure 136/81 04/24/2024 11:36 AM EDT Pulse 77 04/24/2024 11:35 AM EDT Temperature 35.8 C (96.4 F) 05/21/2019 10:44 AM EDT Respiratory Rate 18 05/21/2019 1:15 PM EDT Oxygen Saturation 96% 04/24/2024 11: 35 AM EDT Inhaled Oxygen Concentration - - Weight 129.8 kg (286 lb 1.6 oz) 024 11:35 AM EDT Height 185.4 cm (6' 1 ) 04/22/2023 10:4 8 AM EDT Body Mass Index 37.75 04/22/2023 10:48 AM EDT Plan of Treatment Upcoming Encounters Date Type Department Care Team (Late st Contact Info) Description 04/26/2025 12:30 PM EDT Office Visit Cardiology [address] [place] [address] [place] [address] [place] [address] annual 04/26/2025 12:30 PM EDT Office Visit Cardiology [id number] [address] [place] [address] annual Health Maintenance Due Date Last Done Comments HbA1C 1949 Diabetic Foot Exam 1954 Dilated Retinal Exam 1954 Urine Albumin:Creatinine Ratio 1954 Annual PCP Team Chronic Disease Visit 1962 Anxiety Screening 1962 BP Controlled (<130/80) 1962 Depression Screening 1962 DTaP,Tdap,Td Vaccine (1 - Tdap) 1963 Pneumococcal Vaccine: 50+ (2 of 2 - PCV) 09/19/2017 09/19/2016 RSV Vaccine (1 - 1-dose 75+ series) 2019 LDL Cholesterol 04/15/2020 04/15/2019 Covid-19 Vaccine ( season) 2024 09/27/2021, 01/27/2021, 01/06/2021 Advance Directive Discussion 11/11/2024 Influenza Vaccine (Season Ended) 2025 08/25/2021, 09/06/2020, 09/19/2016 Shingrix Vaccine Completed 11/18/2023, 09/06/2023 Medical Devices Implanted Type Area Principal Solutions Architect Device Identifier Shelf Expiration Date Model / Serial / Lot [id number] Evera Mri Xt [id number] Implanted:2018 (Quantity not on file) ICD [employer] [id number] E vera MRI XT / [id number] / [id number] Capsurefix Novus [id number] Implanted:2018 (Quantity not on file) Lead [employer] 4076 CAPS UREFIX NOVUS / [id number] / [id number] 6947m Sprint Quattro Secure [id number] Implanted:2018 (Quantity not on file) Lead [employer] 6947M SPR INT QUATTRO SECURE / [id number] / Procedures Procedure Name Priority Date/Time Associated Diagnosis Comments INTERROGATION EVAL REMOTE </90 D 1/2/INSURANCE INVESTIGATOR LD DFB Routine 01/19/2025 6:35 AM EDT LIPID PANEL BASIC (EU,FV,HL,ASHLEE,MM,SP) JOSS 04/15/2019 4:33 AM EDT from Last 3 Months or Most Recently Relevant to Health Maintenance Results * CARDIAC IMPLANTABLE DEVICE CHECK REMOTE (01/19/2025 6:35 AM EDT) [facility] Date Time Interrogation Session [id number] MURJ CARDIAC Type Interrogation Session Remote MURJ CARDIAC Implantable Pulse Generator Principal Solutions Architect Medtronic MURJ CARDIAC Implantable Pulse Generator Type Defibrillator MURJ CARDIAC Implantable Pulse Generator Model Evera MRI XT [id number] MURJ CARDIAC Implantable Pulse Generator Serial Number [id number] MURJ CARDIAC Implantable Pulse Generator Implant Date [id number] MURJ CARDIAC Battery Remaining Longevity 29.0 MURJ CARDIAC Battery Voltage 2.950 MURJ CARDIAC Battery COMPUTER ANIMATOR Trigger 2.727 MURJ CARDIAC Battery Status OK MURJ CARDIAC Capacitor Charge Time 4.083 MURJ CARDIAC Negro Statistic RA Percent Paced 95.55 MURJ CARDIAC Negro Statistic RV Percent Paced 0.09 MURJ CARDIAC Atrial Tachy Statistic AT/AF [place] Percent 0.00 MURJ CARDIAC Lead Channel Sensing Intrinsic Amplitude 5.375 MURJ CARDIAC Lead Channel Setting Sensing Sensitivity 0.30 MURJ CARDIAC Lead Channel Impedance Value 399 MURJ CARDIAC Lead Channel Pacing Threshold Amplitude 0.625 MURJ CARDIAC Lead Channel Pacing Threshold Pulse Width 0.4 MURJ CARDIAC Lead Channel Measurements Date and Time 2025-01-18 MURJ CARDIAC Lead Channel Setting Pacing Amplitude 1.500 MURJ CARDIAC Lead Channel Setting Pacing Pulse Width 0.4 MURJ CARDIAC Lead Channel Sensing Intrinsic Amplitude 6.625 MURJ CARDIAC Lead Channel Setting Sensing Sensitivity 0.30 MURJ CARDIAC Lead Channel Impedance Value 532 MURJ CARDIAC Lead Channel Pacing Threshold Amplitude 0.500 MURJ CARDIAC Lead Channel Pacing Threshold Pulse Width 0.4 MURJ CARDIAC Lead Channel Measurements Date and Time 2025-01-19 MURJ CARDIAC Lead Channel Setting Pacing Amplitude 2.000 MURJ CARDIAC Lead Channel Setting Pacing Pulse Width 0.4 MURJ CARDIAC Negro Setting Mode (NBG Code) AAIR<=>DDDR MURJ CARDIAC Negro Setting Lower Rate Limit 60 MURJ CARDIAC Negro Setting AT Mode Switch Rate 171 MURJ CARDIAC Negro Setting Maximum Tracking Rate 130 MURJ CARDIAC Negro Setting Maximum Sensor Rate 120 MURJ CARDIAC Negro Setting PAV Delay 200 MURJ CARDIAC Negro Setting RONAK Delay 180 MURJ CARDIAC Therapy Statistic Recent Shocks Delivered 0 MURJ CARDIAC Therapy Statistic Recent Shocks Aborted 0 MURJ CARDIAC Therapy Statistic Recent ATP Delivered 0 MURJ CARDIAC RV HV Impedance 44 MURJ CARDIAC SVC Measured Impedance 52 MURJ CARDIAC Lead Channel Setting Sensing Polarity Bipolar MURJ CARDIAC Lead Channel Setting Sensing Polarity Bipolar MURJ CARDIAC Lead Channel Setting Pacing Polarity Bipolar MURJ CARDIAC Lead Channel Setting Pacing Polarity Bipolar MURJ CARDIAC Lead Channel Pacing Threshold Polarity Bipolar MURJ CARDIAC Lead Channel Pacing Threshold Polarity Bipolar MURJ CARDIAC Zone Setting Type Category AT/AF MURJ CARDIAC Rate 1 171 MURJ CARDIAC Therapies All Rx Off MURJ CARDIAC Zone Setting Status Monitor MURJ CARDIAC Zone ID 2 MURJ CARDIAC Zone Setting Type Category VF MURJ CARDIAC Rate 1 214 MURJ CARDIAC Therapies ATP During Charging, 35Jx6 MURJ CARDIAC Zone Setting Status On MURJ CARDIAC Zone ID 3 MURJ CARDIAC Zone Setting Type Category FVT MURJ CARDIAC Rate 1 214 MURJ CARDIAC Rate 2 240 MURJ CARDIAC Therapies Burst(3), 35Jx4 MURJ CARDIAC Zone Setting Status VIA_VF MUR CARDIAC Zone ID 4 MURJ CARDIAC Zone Setting Type Category VT MURJ CARDIAC Rate 1 188 MURJ CARDIAC Rate 2 240 MURJ CARDIAC Therapies Burst(3), 35Jx3 MURJ CARDIAC Zone Setting Status ENABLED MURJ CARDIAC Zone ID 5 MURJ CARDIAC Zone Setting Type Category VT MURJ CARDIAC Rate 1 171 MURJ CARDIAC Rate 2 188 MURJ CARDIAC Zone Setting Status ENABLED [facility] C[facility] Zone ID 6 [facility] Implantable Lead Principal Solutions Architect Medtronic [facility] CARDIAC Implantable Lead Model 4076 CapsureFix Novus [facility] C[facility] Implantable Lead Location Right Atrium [facility] Implantable Lead Connection Status Connected [facility] C[facility] Implantable Lead Serial Number [id number] [facility] Implantable Lead Implant Date 20190417 [facility] Implantable Lead Principal Solutions Architect Medtronic [facility] Implantable Lead Model [id number] Sprint Quattro Secure [facility] Implantable Lead Location Right Ventricle [facility] Implantable Lead Connection Status Connected [facility] Implantable Lead Serial Number [id number] [facility] C[facility] Implantable Lead Implant Date 20190417 [facility] C[facility] 01/19/2025 6:35 AM EDT Narrative [facility] CARDI[facility] - 01/21/2025 2:18 PM EDT Normal Remote: With Events * Normal Device Function * Events or Alerts: 1 * Battery: OK, 2.42 yrs * Sensing, impedance and thresholds reviewed * Programmed parameters reviewed * Presenting rhythm reviewed AP/VS * Heart Rate Histograms reviewed AP 96.1% DEATH CLAIM EXAMINER <0.1% Non-sustained Ventricular Tachycardia * Stored EGMs are consistent with or suggestive of Non-sustained VT * Total episodes: 1 NOTE TO PROVIDERS: Cardiac Implanted Devices Flowsheets contain detailed Programming and Evaluation data. Full Docket/PDF found below under Scanned Documents . Procedure Note Toy Crouch MD - 01/21/2025 Normal Remote: With Events * Normal Device Function * Events or Alerts: 1 * Battery: OK, 2.42 yrs * Sensing, impedance and thresholds reviewed * Programmed parameters reviewed * Presenting rhythm reviewed AP/VS * Heart Rate Histograms reviewed AP 96.1% DEATH CLAIM EXAMINER <0.1% Non-sustained Ventricular Tachycardia * Stored EGMs are consistent with or suggestive of Non-sustained VT * Total episodes: 1 NOTE TO PROVIDERS: Cardiac Implanted Devices Flowsheets contain detailedProgramming and Evaluation data. Full Docket/PDF found below under Scanned Documents . Toy Crouch MD CARDIOLOGY Final Result MURJ CARDIAC * LIPID PANEL BASIC (AK,AV,EU,FV,HL,ASHLEE,MM,SP) (04/15/2019 4:33 AM EDT) [facility] Cholesterol, Total 105 <200 mg/dL 04/15/2019 2:09 PM [facility] [employer] Comment: <200 mg/dL, Desirable 200-239 mg/dL, Borderline high >239 mg/dL, High Triglyceride 84 <150 mg/dL 04/15/2019 2:09 PM [facility] [employer] Comment: <150 mg/dL, Normal 150-199 mg/dL, Borderline high 200-499 mg/dL, High >499 mg/dL, Very high HDL Cholesterol 41 >39 mg/dL 2:09 PM T [facility] Comment: 40-59 mg/dL, Acceptable >59 mg/dL, High: Negative risk factor for coronary heart disease <40 mg/dL, Low: Positive risk factor for coronary heart disease LDL Calculated 47 <100 mg/dL 04/15/2019 2:09 PM [facility] Comment: <100 mg/dL, Optimal 100-129 mg/dL, Near optimal/above optimal 130-159 mg/dL, Borderline high 160-189 mg/dL, High >189 mg/dL, Very high Secondary prevention optimal LDL Cholesterol levels are recommended to be < 70 mg/dL Non HDL Cholesterol 64 <130 mg/dL 04/15/2019 2:09 PM [facility] Comment: <130 mg/dL, Optimal 130-159 mg/dL, Near optimal/above optimal 160-189 mg/dL, Borderline high 190-219 mg/dL, High >219 mg/dL, Very high Secondary prevention optimal non HDL Cholesterol levels are recommended to be < 100 mg/dL VLDL Cholesterol 17 <30 mg/dL 04/15/20 19 2:09 PM EDT [facility] TC:HDL Ratio 2.56 <5.10 04/15/2019 2:09 PM EDT [facility] LDL:HDL Ratio 1.15 <2.54 04/15/2019 2:09 PM EDT [facility] Comment: Reference: 1. National Cholesterol Education Program ATP III Guideline At-A-Glance Quick Desk Reference: National Heart, Lung, and Blood [place]. National Institutes of Health. 2001: NIH Publication No. 01-3305. 2. An International Atherosclerosis Society position paper: global recommendations for the management of dyslipidemia: executive summary, Atherosclerosis. 2014: 232(2):410-413. Blood specimen (specimen) BLOOD SPECIMEN / Unknown 04/15/2019 4:33 AM EDT 04/15/2019 4:34 AM EDT Minda Knight MD [facility] Final Result [facility] [address] [place] [address] [facility] [address] [place] [address] from Last 3 Months or Most Recently Relevant to Health Maintenance [place] [address] [place] [address] MEDICARE ADVANTAGE PPO Care Teams Dictating Machine Typist Relationship Specialty Start Date End Date Berlin Castro MD PCP - General Family Medicine 11/24/15 Rey Perry MD [address] [place] [address] Referring Cardiology 03/10/19 Dameon Arizmendi MD [address] [place] [phone] Cardiology 03/24/19 Toy Crouch MD [address] [place] [phone] Primary Staff Physician Cardiology 04/26/20
[2025-04-16 11:24] LABS: Basophils Percent Auto 0.5 % (0.2-2.0); Hematocrit 40.6 % (42.0-54.0); Hemoglobin 13.9 g/dL (14.0-18.0); Immature Granulocytes Abs Auto 0.03 10^3/uL (0.00-0.03); Immature Granulocytes Pct Auto 0.8 % (0.0-0.5); Lymphocytes Absolute Auto 1.2 10^3/uL (1.2-3.8); Lymphocytes Percent Auto 30.1 % (20.5-60.0); Mean Corpuscular HGB Conc 34.2 g/dL (29.9-35.2); Mean Corpuscular Hemoglobin 31.4 pg (25.9-34.0); Mean Corpuscular Volume 91.9 fL (80.0-94.0); Mean Platelet Volume 9.2 fL (9.5-13.5); Monocytes Absolute Auto 0.4 10^3/uL (0.3-0.8); Monocytes Percent Auto 10.9 % (1.7-12.0); Neutrophils Absolute Auto 2.2 10^3/uL (1.4-6.5); Neutrophils Percent Auto 56.7 % (43.0-75.0); Platelet Count 133 10^3/uL (150-450); Red Blood Count 4.42 10^6/uL (4.70-6.10); Red Cell Distribution Width 13.2 % (11.0-15.0)
[2025-04-16 12:32] LABS: Alanine Aminotransferase 19 U/L (16-63); Albumin Globulin Ratio 1.1; Albumin Level 3.7 g/dL (3.4-5.0); Alkaline Phosphatase 59 U/L (46-116); Anion Gap 8.9; Aspartate Amino Transferase 13 U/L (15-37); BUN Creatinine Ratio 18.4; Calcium 9.1 mg/dL (8.5-10.1); Carbon Dioxide 32.2 mmol/L (21.0-32.0); Chloride 101 mmol/L (98-107); Cholesterol 139 mg/dL (<=200); Estimated GFR (African America >60 (>=60 mL/min/1.73m^2); Estimated GFR (Non-African Ame >60 (>=60 mL/min/1.73m^2); Free T3 2.51 pg/mL (2.18-3.98); Globulin 3.3 g/dL; Glucose 125 mg/dL (74-106); HDL Cholesterol 46 mg/dL (40-60); Potassium 4.1 mmol/L (3.5-5.1); Sodium 138 mmol/L (136-145); Thyroid Stimulating Hormone 2.445 uIU/mL (0.358-3.740); Triglycerides 187 mg/dL (<=150); VLDL CHOLESTEROL 37.4 mg/dL
[2025-04-16 12:36] LABS: Prostate Specific Antigen Scrn 1.98 ng/mL (<=4.00)
[2025-04-16 15:22] LABS: Estimated Average Glucose 117 mg/dL; Glycohemoglobin A1C 5.7 % (4.5-6.2)
[2025-04-17 04:07] LABS: Triiodothyronine (T3) 121 ng/dL (71-180)
== END 2025-04-16 11:08 | disposition home or self-care (01) ==
LOC: LAB 11:09
PROVIDERS: PCP Family Medicine; Visit Provider Family Medicine
DX: E78.5 Hyperlipidemia, unspecified (principal); E66.01 Morbid (severe) obesity due to excess calories; I48.0 Paroxysmal atrial fibrillation; E11.9 Type 2 diabetes mellitus without complications; I47.29 Other ventricular tachycardia; E03.9 Hypothyroidism, unspecified; I10 Essential (primary) hypertension; Z12.5 Encounter for screening for malignant neoplasm of prostate; R53.83 Other fatigue
CPT/HCPCS: 36415; 80053; 80061; 83036; 84443; 84480; 84481; 85025; G0103